=== PATIENT | male | born 1990 | race Caucasian/White ===

== ENCOUNTER 2019-05-10 08:43 | Emergency (ER) | payer OTHER ==
[~2019-05-10] VITALS: Ht 172.7 cm; Wt 99.8 kg
[~2019-05-10 08:43] MED LIST: CROLOM 4% OPTH SO4 % OP; FLEXERIL PO; NORCO 5-325 TA1 EAC1 PO; ZOFRAN ODT4 MG PO
[2019-05-10] MEDS ORDERED: TRAMADOL 50 MG50 MG PO (09:49)
[2019-05-10] MEDS ORDERED: AMOXICILLIN 50500 MG PO (09:49)
[2019-05-10] MEDS ORDERED: ZOFRAN ODT4 MG SUBLING (09:49)
[2019-05-10 09:58] VITALS: BP 122/88
== END 2019-05-10 09:59 | disposition home or self-care (01) ==
LOC: M.ERS 08:43
DX: K02.9 Dental caries, unspecified (principal)